=== PATIENT | male | born 1950 | race Caucasian/White ===

== ENCOUNTER 2020-03-20 13:34 | Emergency (ER) | payer MEDICARE, OTHER ==
[~2020-03-20] VITALS: Ht 172.7 cm; Wt 87.5 kg
[~2020-03-20 13:34] MED LIST: ACHD5005 PO; BENA20TA7 PO; HYOS0.1283 SL; METO50TA7 PO; OMG1KC PO; ONDA4TAB8 PO; PANT40TA2 PO
--- NOTE | 2020-03-20 13:59 | ED Dyspnea ---
General Stated Complaint: COVID + History of Present Illness Date Seen by Provider: Mar 20, 2020 Time Seen by Provider: 13:59 Initial Comments 69-year-old male presents with diarrhea 4 days. Preset a fever 4 days ago. He has a mild cough. No shortness of breath. Patient called his primary care provider who told him he probably needed to come to the ER for some IV fluids labs and testing for rotavirus. Patient denies any abdominal pain. Reports he's had significant amount of diarrheal stools. He has no known exposure to wei navirus and has been very careful with isolation. Allergies and Home Medications Allergies Coded Allergies: No Known Drug Allergies (Unverified , 07/19/11) Home Medications Benazepril HCl 20 Mg Tablet, 20 MG PO DAILY@1600, (Reported) Hydrocodone Bit/Acetaminophen 1 Each Tablet, 1-2 EACH PO Q6H PRN for PAIN Prescribed by: DERIC DOMÍNGUEZ on 05/17/15 1309 Hyoscyamine Sulfate 0.125 Mg Tab.subl, 1-2 TAB SL Q4H Prescribed by: NARCISO BEDOYA on 05/13/15 025 Metoprolol Succinate 50 Mg Tab.er.24h, 50 MG PO daily @1600, (Reported) [place] 3 Polyunsat Fatty Acids 1,000 Mg Cap, 1,000 MG PO DAILY@1600, (Reported) Ondansetron 4 Mg Tab.rapdis, 4 MG PO Q4H Prescribed by: NARCISO BEDOYA on 05/13/15 025 Patient Home Medication List Home Medication List Reviewed: Yes Review of Systems Review of Systems Constitutional: No chills, No dizziness; fever Respiratory: cough; No short of breath Cardiovascular: No chest pain, No palpitations Gastrointestinal: No abdominal pain; diarrhea; No nausea, No vomiting Genitourinary: no symptoms reported Musculoskeletal: no symptoms reported Skin: no symptoms reported Psychiatric/Neurological: No Symptoms Reported Past Gifhemd-Pbgfhy-Cnpusc Hx Past Med/Social Hx: Reviewed Nursing Past Med/Soc Hx Immunizations Up To Date Date of Pneumonia Vaccine: Aug 23, 2013 Seasonal Allergies Seasonal Allergies: No Past Medical History Appendectomy Hypertension Gall Bladder Disease Arthritis Skin Adverse Reaction/Blood Tranf: No Physical Exam Vital Signs Vital Signs - First Documented 03/20/20 14:22 Temp 37.5 Pulse 99 Resp 18 B/P (MAP) 149/87 (107) O2 Delivery Room Air Capillary Refill : Height, Weight, BMI Height: 5'9.00" Weight: 181lbs. 0.0oz. 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 Norm as Tested Skin: Normal Color, Warm/Dry Progress/Results/Core Measures Results/Orders Lab Results Laboratory Tests Test 03/20/20 14:36 03/20/20 14:37 Range/Units White Blood Count 4.7 4.3-11.0 10^3/uL Red Blood Count 5.18 4.35-5.85 10^6/uL Hemoglobin 16.3 13.3-17.7 G/DL Hematocrit 46 40-54 % Mean Corpuscular Volume 89 80-99 FL Mean Corpuscular Hemoglobin 32 25-34 PG Mean Corpuscular Hemoglobin Concent 35 32-36 G/DL Red Cell Distribution Width 14.0 10.0-14.5 % Platelet Count 133 130-400 10^3/uL Mean Platelet Volume 12.0 H 7.4-10.4 FL Neutrophils (%) (Auto) 43 42-75 % Lymphocytes (%) (Auto) 42 12-44 % Monocytes (%) (Auto) 15 H 0-12 % Eosinophils (%) (Auto) 0 0-10 % Basophils (%) (Auto) 0 0-10 % Neutrophils # (Auto) 2.0 1.8-7.8 X 10^3 Lymphocytes # (Auto) 1.9 1.0-4.0 X 10^3 Monocytes # (Auto) 0.7 0.0-1.0 X 10^3 Eosinophils # (Auto) 0.0 0.0-0.3 10^3/uL Basophils # (Auto) 0.0 0.0-0.1 10^3/uL Urine Color YELLOW Urine Clarity CLEAR Urine pH 6.0 5-9 Urine Specific [place] 1.025 H 1.016-1.022 Urine Protein 1+ H NEGATIVE Urine Glucose (UA) NEGATIVE NEGATIVE Urine Ketones NEGATIVE NEGATIVE Urine Nitrite NEGATIVE NEGATIVE Urine Bilirubin NEGATIVE NEGATIVE Urine Urobilinogen 0.2 < = 1.0 MG/DL Urine Leukocyte Esterase NEGATIVE NEGATIVE Urine RBC (Auto) NEGATIVE NEGATIVE Urine RBC NONE /HPF Urine WBC NONE /HPF Urine Crystals NONE /LPF Urine Bacteria NEGATIVE /HPF Urine Casts PRESENT /LPF Urine Hyaline Casts 0-2 H /LPF Urine Mucus NEGATIVE /LPF Urine Culture Indicated NO Sodium Level 137 135-145 MMOL/L Potassium Level 4.1 3.6-5.0 MMOL/L Chloride Level 107 98-107 MMOL/L Carbon Dioxide Level 20 L 21-32 MMOL/L Anion Gap 10 5-14 MMOL/L Blood Urea Nitrogen 20 H 7-18 MG/DL Creatinine 1.29 0.60-1.30 MG/DL Estimat Glomerular Filtration Rate 55 BUN/Creatinine Ratio 16 Glucose Level 110 H 70-105 MG/DL Calcium Level 8.4 L 8.5-10.1 MG/DL Corrected Calcium 8.4 L 8.5-10.1 MG/DL Total Bilirubin 0.5 0.1-1.0 MG/DL Aspartate Amino Transf (AST/SGOT) 203 H 5-34 U/L Alanine Aminotransferase (ALT/SGPT) 130 H 0-55 U/L Alkaline Phosphatase 54 40-136 U/L Total Protein 7.1 6.4-8.2 GM/DL Albumin 4.0 3.2-4.5 GM/DL Lipase 58 8-78 U/L My Orders Orders - SUZI HAHN DO Acute Abd Series (03/20/20 14:25) Ondansetron Injection (Zofran Injectio (03/20/20 14:30) Ns Iv 1000 Ml (Sodium Chloride 0.9%) (03/20/20 14:25) Famotidine Injection (Pepcid Injection) (03/20/20 14:25) Cbc With Automated Diff (03/20/20 14:25) Comprehensive Metabolic Panel (03/20/20 14:25) Lipase (03/20/20 14:25) Ua Culture If Indicated (03/20/20 14:25) Coronavirus Sars-Cov-2 So 2018 (03/20/20 14:25) Ed Iv/Invasive Line Start (03/20/20 14:48) Medications Given in ED Current Medications Medications Dose Ordered Sig/Wesley Route Start Time Stop Time Status Last Admin Dose Admin Ondansetron HCl 4 mg ONCE ONCE IVP 03/20/20 14:30 03/20/20 14:31 DC 03/20/20 14:47 4 MG Vital Signs/I&O 03/20/20 14:22 Temp 37.5 Pulse 99 Resp 18 B/P (MAP) 149/87 (107) O2 Delivery Room Air Progress Progress Note : Time: 15:50 Progress Note Patient with symptoms consistent with a viral illness. He does not show any signs of dehydration on physical exam or lab values. Patient is stable and will be discharged home. He should follow-up with his [facility] care provider as needed. Diagnostic Imaging Diagonstic Imaging: Xray Plain Films/CT/US/NM/MRI: chest, abdomen Comments [facility], [place] NAME: MADELIN BAE [facility] REC#: [id number] PT STATUS: REG ER : 1950 PHYSICIAN: SUZI HAHN DO ADMIT DATE: 03/20/20/ER Draft Date of Exam:03/20/20 ACUTE ABD SERIES EXAMINATION: Acute abdomen series. INDICATION: Abdominal pain. FINDINGS: The common erect PA chest shows heart size to be within normal limits and stable when compared to 05/13/2015. The lungs are generally clear. There is no evidence for pneumonia or for pleural effusion. There is a thin band of chronic atelectasis/scar formation now present in the left lung base, however. The mediastinum is not widened. Supine and erect views of the abdomen show gas in both large and small bowel. The bowel gas pattern is nonspecific. There is no evidence for bowel obstruction. There is no mass or organomegaly appreciated. There is fairly severe degenerative disc and bony disease at L4-L5 and L5-S1. There is no acute bony abnormality noted. IMPRESSION: 1. The bowel gas pattern is nonspecific. There is no acute abnormality evident. 2. A thin band of increased density has developed in the left lung base. The lungs are otherwise generally clear. Departure Impression Primary Impression: Gastroenteritis Additional Impression: Viral syndrome Disposition: 01 HOME, SELF-CARE Condition: Stable Departure-Patient Inst. Referrals: LATA PENA DO (PCP/Family) Primary Care Physician Patient Instructions: Coronavirus Disease 2019 (COVID-19) Overview, Viral Gastroenteritis, Viral Syndrome (DC) Add. Discharge Instructions: Please follow isolation guidelines until your COVID test results return Drink plenty of fluids Follow-up with your primary care provider as needed Scripts Ondansetron (Ondansetron Odt) 4 Mg Tab.rapdis 4 MG PO Q6H PRN for NAUSEA/VOMITING, #20 TAB 0 Refills Prov: SUZI HAHN DO 03/20/20 SUZI HAHN DO Mar 20, 2020 13:59
[2020-03-20] MEDS ORDERED: FAMOTIDINE 20MG/2ML IV (PEPCID) IV STA (14:25)
[2020-03-20] MEDS ORDERED: NS IV 1000 ML 1,000 ML IV STA (14:25)
[2020-03-20] MEDS ORDERED: ONDANSETRON 4 MG/2 ML (SDV) Z0FRAN IVP ONE (14:30)
[2020-03-20 14:53] LABS: BILIRUBIN,URINE NEGATIVE (NEGATIVE); CLARITY,URINE CLEAR; COLOR,URINE YELLOW; GLUCOSE, URINE (UA) NEGATIVE (NEGATIVE); KETONES,URINE NEGATIVE (NEGATIVE); LEUKOCYTE ESTERASE ,URINE NEGATIVE (NEGATIVE); NITRITE,URINE NEGATIVE (NEGATIVE); PROTEIN,URINE 1+ (NEGATIVE)
[2020-03-20 14:56] LABS: BASOPHILS % (AUTO) 0 % (0-10); EOSINOPHILS % (AUTO) 0 % (0-10); HEMATOCRIT 46 % (40-54); HEMOGLOBIN 16.3 G/DL (13.3-17.7); LYMPHOCYTES # (AUTO) 1.9 X 10^3 (1.0-4.0); LYMPHOCYTES % (AUTO) 42 % (12-44); MEAN CORPUSCULAR HEMOGLOBIN 32 PG (25-34); MEAN CORPUSCULAR HGB CONC 35 G/DL (32-36); MEAN CORPUSCULAR VOLUME 89 FL (80-99); MONOCYTES # (AUTO) 0.7 X 10^3 (0.0-1.0); MONOCYTES % (AUTO) 15 % (0-12); NEUTROPHILS % (AUTO) 43 % (42-75); PLATELET COUNT 133 10^3/uL (130-400); WHITE BLOOD COUNT 4.7 10^3/uL (4.3-11.0)
[2020-03-20 15:07] LABS: BACTERIA,URINE NEGATIVE /HPF; HYALINE CASTS, URINE 0-2 /LPF
--- NOTE | 2020-03-20 15:33 | Diagnostic Imaging Report ---
EXAMINATION: Acute abdomen series. INDICATION: Abdominal pain. FINDINGS: The common erect PA chest shows heart size to be within normal limits and stable when compared to 05/13/2015. The lungs are generally clear. There is no evidence for pneumonia or for pleural effusion. There is a thin band of chronic atelectasis/scar formation now present in the left lung base, however. The mediastinum is not widened. Supine and erect views of the abdomen show gas in both large and small bowel. The bowel gas pattern is nonspecific. There is no evidence for bowel obstruction. There is no mass or organomegaly appreciated. There is fairly severe degenerative disc and bony disease at L4-L5 and L5-S1. There is no acute bony abnormality noted. IMPRESSION: 1. The bowel gas pattern is nonspecific. There is no acute abnormality evident. 2. A thin band of increased density has developed in the left lung base. The lungs are otherwise generally clear. Dictated by: Dictated on workstation # [id number]
[2020-03-20 15:40] LABS: BILIRUBIN,TOTAL 0.5 MG/DL (0.1-1.0); CALCIUM 8.4 MG/DL (8.5-10.1); CREATININE SERUM 1.29 MG/DL (0.60-1.30); POTASSIUM 4.1 MMOL/L (3.6-5.0); TOTAL PROTEIN 7.1 GM/DL (6.4-8.2)
[2020-03-20] MEDS ORDERED: ONDA4TAB11 PO (15:52)
[2020-03-20 16:03] VITALS: BP 144/82
== END 2020-03-20 16:03 | disposition home or self-care (01) ==
LOC: EDUNIT# 13:34 → ER 13:44
DX: K52.9 Noninfective gastroenteritis and colitis, unspecified (principal); B34.9 Viral infection, unspecified; Z20.828 Contact with and (suspected) exposure to other viral communicable diseases
CPT/HCPCS: 74022; 80053; 81000; 83690; 85025; U0002; 36415; 87635

== ENCOUNTER 2020-03-24 11:02 | Emergency (ER) | payer MEDICARE, OTHER ==
[~2020-03-24] VITALS: Ht 175.2 cm; Wt 88.4 kg
[~2020-03-24 11:02] MED LIST changes: +ONDA4TAB11 PO
--- NOTE | 2020-03-24 11:24 | ED General ---
General Stated Complaint: DIARRHEA Source of Information: Patient Exam Limitations: No Limitations History of Present Illness Date Seen by Provider: Mar 24, 2020 Time Seen by Provider: 11:23 Initial Comments ToEr with c/o weakness and ongoing dark diarrhea. No abdominal pain. No grossly bloody diarrhea. No fevers. Has tested negative for covid. no chills. just general weakness. Timing/Duration: 1 Week Severity: Moderate Associated Systoms: Nausea/Vomiting Allergies and Home Medications Allergies Coded Allergies: No Known Drug Allergies (Unverified , 07/19/11) Home Medications Benazepril HCl 20 Mg Tablet, 20 MG PO DAILY@1600, (Reported) Hydrocodone Bit/Acetaminophen 1 Each Tablet, 1-2 EACH PO Q6H PRN for PAIN Prescribed by: DERIC DOMÍNGUEZ on 05/17/15 1309 Hyoscyamine Sulfate 0.125 Mg Tab.subl, 1-2 TAB SL Q4H Prescribed by: NARCISO BEDOYA on 05/13/15 0259 Metoprolol Succinate 50 Mg Tab.er.24h, 50 MG PO daily @1600, (Reported) [place] 3 Polyunsat Fatty Acids 1,000 Mg Cap, 1,000 MG PO DAILY@1600, (Reported) Ondansetron 4 Mg Tab.rapdis, 4 MG PO Q4H Prescribed by: NARCISO BEDOYA on 05/13/15 025 Ondansetron 4 Mg Tab.rapdis, 4 MG PO Q6H PRN for NAUSEA/VOMITING Prescribed by: SUZI HAHN on 03/20/20 1552 Patient Home Medication List Home Medication List Reviewed: Yes Review of Systems Review of Systems Constitutional: see HPI EENTM: see HPI Respiratory: no symptoms reported Cardiovascular: no symptoms reported Genitourinary: no symptoms reported Musculoskeletal: no symptoms reported Skin: no symptoms reported Psychiatric/Neurological: No Symptoms Reported Hematologic/Lymphatic: No Symptoms Reported Immunological/Allergic: no symptoms reported Past Gzozthf-Wuhcft-Utiowh Hx Patient Social History 2nd Hand Smoke Exposure: No Recent Foreign Travel: No Contact w/Someone Who Travel: No Immunizations Up To Date Date of Pneumonia Vaccine: Aug 23, 2013 Seasonal Allergies Seasonal Allergies: No Past Medical History Surgeries: Yes (SKIN CANCER REMOVED FROM RIGHT EAR) Appendectomy Respiratory: No Cardiac: Yes Hypertension Neurological: No Gastrointestinal: Yes Gall Bladder Disease Musculoskeletal: Yes Arthritis Endocrine: No (HAD "PRE-DIABETES" IN THE PAST--NO MEDICATIONS AND NO PROBLEMS NOW) Cancer: Yes Skin Psychosocial: No Integumentary: No Blood Disorders: No Adverse Reaction/Blood Tranf: No Physical Exam Vital Signs Vital Signs - First Documented 03/24/20 11:12 Temp 37.1 Pulse 97 Resp 20 B/P (MAP) 128/114 (119) Pulse Ox 97 O2 Delivery Room Air Capillary Refill : Height, Weight, BMI Height: 5'9.00" Weight: 181lbs. 0.0oz. 82.612877yn; 29.00 BMI Method:Stated General Appearance: No Apparent Distress, WD/WN Eyes: Bilateral Eye Normal Inspection, Bilateral Eye PERRL, Bilateral Eye EOMI Respiratory: No Accessory Muscle Use, No Respiratory Distress Cardiovascular: Regular Rate, Rhythm, Normal Peripheral Pulses Gastrointestinal: Non Tender, Soft Extremity: Normal Capillary Refill, Normal Inspection Neurologic/Psychiatric: Alert, Oriented x3 Skin: Normal Color, Warm/Dry Progress/Results/Core Measures Suspected Sepsis SIRS Temperature: Pulse: Respiratory Rate: Laboratory Tests 03/24/20 11:20: White Blood Count 3.7L Blood Pressure / Mean: Laboratory Tests 03/24/20 11:20: Creatinine 1.14, Platelet Count 85L, Total Bilirubin 0.5 Results/Orders Lab Results Laboratory Tests Test 03/24/20 11:20 Range/Units White Blood Count 3.7 L 4.3-11.0 10^3/uL Red Blood Count 5.30 4.35-5.85 10^6/uL Hemoglobin 16.8 13.3-17.7 G/DL Hematocrit 46 40-54 % Mean Corpuscular Volume 87 80-99 FL Mean Corpuscular Hemoglobin 32 25-34 PG Mean Corpuscular Hemoglobin Concent 36 32-36 G/DL Red Cell Distribution Width 13.8 10.0-14.5 % Platelet Count 85 L 130-400 10^3/uL Mean Platelet Volume 12.2 H 7.4-10.4 FL Neutrophils (%) (Auto) 37 L 42-75 % Lymphocytes (%) (Auto) 48 H 12-44 % Monocytes (%) (Auto) 14 H 0-12 % Eosinophils (%) (Auto) 0 0-10 % Basophils (%) (Auto) 1 0-10 % Neutrophils # (Auto) 1.4 L 1.8-7.8 X 10^3 Lymphocytes # (Auto) 1.8 1.0-4.0 X 10^3 Monocytes # (Auto) 0.5 0.0-1.0 X 10^3 Eosinophils # (Auto) 0.0 0.0-0.3 10^3/uL Basophils # (Auto) 0.0 0.0-0.1 10^3/uL Sodium Level 134 L 135-145 MMOL/L Potassium Level 3.9 3.6-5.0 MMOL/L Chloride Level 104 98-107 MMOL/L Carbon Dioxide Level 17 L 21-32 MMOL/L Anion Gap 13 5-14 MMOL/L Blood Urea Nitrogen 17 7-18 MG/DL Creatinine 1.14 0.60-1.30 MG/DL Estimat Glomerular Filtration Rate > 60 BUN/Creatinine Ratio 15 Glucose Level 113 H 70-105 MG/DL Calcium Level 8.3 L 8.5-10.1 MG/DL Corrected Calcium 8.3 L 8.5-10.1 MG/DL Total Bilirubin 0.5 0.1-1.0 MG/DL Aspartate Amino Transf (AST/SGOT) 198 H 5-34 U/L Alanine Aminotransferase (ALT/SGPT) 107 H 0-55 U/L Alkaline Phosphatase 51 40-136 U/L Total Protein 7.1 6.4-8.2 GM/DL Albumin 4.0 3.2-4.5 GM/DL My Orders Orders - ARTI SANTANA APRN Comprehensive Metabolic Panel (03/24/20 11:19) Ed Iv/Invasive Line Start (03/24/20 11:19) Cbc With Automated Diff (03/24/20 11:19) Ed Iv/Invasive Line Start (03/24/20 11:19) Lactated Ringers (Lr 1000 Ml Iv Solution (03/24/20 11:30) Loperamide Tablet (Imodium Tablet) (03/24/20 11:30) Ct Abdomen/Pelvis W (03/24/20 11:58) Iohexol Injection (Omnipaque 350 Mg/Ml 1 (03/24/20 12:15) Received Contrast (Hold Metformin- Contr (03/24/20 12:15) Sodium Chloride Flush (Catheter Flush Sy (03/24/20 12:15) Ns (Ivpb) (Sodium Chloride 0.9% Ivpb Bag (03/24/20 12:15) Medications Given in ED Current Medications Medications Dose Ordered Sig/Wesley Route Start Time Stop Time Status Last Admin Dose Admin Iohexol 100 ml ONCE ONCE IV 03/24/20 12:15 03/24/20 12:16 DC 03/24/20 12:34 100 ML Loperamide HCl 4 mg ONCE ONCE PO 03/24/20 11:30 03/24/20 11:31 DC 03/24/20 11:31 4 MG Sodium Chloride 10 ml NEEDED PRN IV 03/24/20 12:15 03/24/20 12:35 10 ML Sodium Chloride 100 ml ONCE ONCE IV 03/24/20 12:15 03/24/20 12:16 DC 03/24/20 12:35 80 ML Vital Signs/I&O 03/24/20 11:12 Temp 37.1 Pulse 97 Resp 20 B/P (MAP) 128/114 (119) Pulse Ox 97 O2 Delivery Room Air Capillary Refill : Departure Impression Primary Impression: Diarrhea Qualified Codes: R19.7 - Diarrhea, unspecified Disposition: HOME, SELF-CARE Condition: Stable Departure-Patient Inst. Decision time for Depature: 13:10 Referrals: LATA PENA DO (PCP/Family) Primary Care Physician Patient Instructions: Diarrhea and Travelers' Diarrhea, Adult (DC) Add. Discharge Instructions: 1. Drink plenty of liquids 2. Take the antidiarrheal medication as directed. Return to ER for any concerns. Call Dr. Dr. Pena tomorrow to make an appointment to be seen. Scripts Loperamide HCl (Imodium A-D) 2 Mg Tablet 2 MG PO TID, #6 TAB Prov: ARTI SANTANA APRN 03/24/20 Copy Copies To 1: LATA PENA PETER J APRN Mar 24, 2020 11:24
[2020-03-24] MEDS ORDERED: LACTATED RINGERS 1,000 ML IV SCH (11:30)
[2020-03-24] MEDS ORDERED: LOPERAMIDE 2 MG (IMODIUM) TABLET PO ONE (11:30)
[2020-03-24 11:34] LABS: BASOPHILS % (AUTO) 1 % (0-10); EOSINOPHILS % (AUTO) 0 % (0-10); HEMATOCRIT 46 % (40-54); HEMOGLOBIN 16.8 G/DL (13.3-17.7); LYMPHOCYTES # (AUTO) 1.8 X 10^3 (1.0-4.0); LYMPHOCYTES % (AUTO) 48 % (12-44); MEAN CORPUSCULAR HEMOGLOBIN 32 PG (25-34); MEAN CORPUSCULAR HGB CONC 36 G/DL (32-36); MEAN CORPUSCULAR VOLUME 87 FL (80-99); MEAN PLATELET VOLUME 12.2 FL (7.4-10.4); MONOCYTES # (AUTO) 0.5 X 10^3 (0.0-1.0); MONOCYTES % (AUTO) 14 % (0-12); NEUTROPHILS # (AUTO) 1.4 X 10^3 (1.8-7.8); NEUTROPHILS % (AUTO) 37 % (42-75); RED CELL DISTRIBUTION WIDTH 13.8 % (10.0-14.5); WHITE BLOOD COUNT 3.7 10^3/uL (4.3-11.0)
[2020-03-24 11:35] LABS: PLATELET COUNT 85 10^3/uL (130-400)
--- NOTE | 2020-03-24 11:38 | NUR ---
Spoke to pt's brother via phone regarding plan of care.
[2020-03-24 11:42] LABS: CHLORIDE 104 MMOL/L (98-107); POTASSIUM 3.9 MMOL/L (3.6-5.0); SODIUM 134 MMOL/L (135-145)
[2020-03-24 11:44] LABS: CALCIUM 8.3 MG/DL (8.5-10.1)
[2020-03-24 11:45] LABS: GLUCOSE 113 MG/DL (70-105); TOTAL PROTEIN 7.1 GM/DL (6.4-8.2)
[2020-03-24 11:46] LABS: CARBON DIOXIDE 17 MMOL/L (21-32)
[2020-03-24 11:47] LABS: BILIRUBIN,TOTAL 0.5 MG/DL (0.1-1.0)
[2020-03-24 11:48] LABS: ALKALINE PHOSPHATASE 51 U/L (40-136); CREATININE SERUM 1.14 MG/DL (0.60-1.30); GFR ESTIMATED > 60
[2020-03-24 11:50] LABS: BUN/CREATININE RATIO 15
[2020-03-24 11:51] LABS: ALANINE AMINOTRANSFERASE 107 U/L (0-55)
[2020-03-24] MEDS ORDERED: HOLD METFORMIN - RECEIVED CONTRAST 20 ML VIAL IV SCH (12:15)
[2020-03-24] MEDS ORDERED: NS 100 ML (IVPB) BAG IV ONE (12:15)
[2020-03-24] MEDS ORDERED: IOHEXOL 350 MG/ML 100 ML (OMNIPAQUE 350) VIAL IV ONE (12:15)
[2020-03-24] MEDS ORDERED: CATHETER FLUSH 10 ML SYR IV PRN (12:15)
--- NOTE | 2020-03-24 12:58 | Diagnostic Imaging Report ---
PROCEDURE: CT abdomen and pelvis with contrast. TECHNIQUE: Multiple contiguous axial images were obtained through the abdomen and pelvis after administration of intravenous contrast. Auto Exposure Controls were utilized during the CT exam to meet ALARA standards for radiation dose reduction. INDICATION: Abdominal pain, diarrhea and weakness. Surgical history includes cholecystectomy and appendectomy. Comparison made with prior examination from 05/13/2015. FINDINGS: The heart size is normal. The lung bases are clear. There is fatty infiltration of the liver. There is no biliary duct dilatation. The gallbladder is surgically absent. Spleen is normal. Note is again made of a focal cystic area in the uncinate process of the pancreas. This is essentially unchanged when compared to prior examination from 2014. The adrenal glands are unremarkable. Kidneys normal in appearance. There are some atherosclerotic calcification from the aorta. Bowel gas pattern is nonspecific. There is no free air. There is no ascites. There is no focal inflammatory process. Bladder is normal. There is no pelvic mass, adenopathy or free fluid. There are degenerative changes in the spine. IMPRESSION: Fatty infiltration of the liver. Unchanged cystic mass in the uncinate process of the pancreas presumably a benign process. No other acute abnormality in the abdomen or pelvis. Dictated by: Dictated on workstation # [id number]
[2020-03-24] MEDS ORDERED: LOPE-134 PO (13:12)
--- NOTE | 2020-03-24 13:20 | NUR ---
attempted to call pt's brother re:discharge plan; no answer.
[2020-03-24 13:29] VITALS: BP 156/79
[2020-03-27] MEDS ORDERED: CEFD300C3 PO (13:23)
[2020-03-27] MEDS ORDERED: BENA10TA66 PO (13:23)
[2020-03-27] MEDS ORDERED: MTP25TSR PO (13:23)
[2020-03-27] MEDS ORDERED: ONDA4TAB11 PO (13:23)
[2020-03-27] MEDS ORDERED: LOPE2CAP PO (13:25)
[2020-03-27] MEDS ORDERED: IBUP-2185 PO (13:25)
== END 2020-03-24 13:35 | disposition home or self-care (01) ==
LOC: EDUNIT# 11:02 → ER 11:03
DX: R19.7 Diarrhea, unspecified (principal); I10 Essential (primary) hypertension; M19.90 Unspecified osteoarthritis, unspecified site; Z85.828 Personal history of other malignant neoplasm of skin; Z79.899 Other long term (current) drug therapy
CPT/HCPCS: 36415; 74177; 80053; 85025

== ENCOUNTER → 2022-02-11 | Outpatient (CLI) | payer MEDICARE, OTHER ==
[~2022-02-11] VITALS: Ht 174 cm; Wt 78.7 kg
[~2022-02-11] MED LIST changes: +ACET-2267 PO; +AMOX-358 PO; +ASPI-999 PO; +ATOR10TA66 PO; +BENA-3 PO; +BENA10TA66 PO; -BENA20TA7 PO; +CALC300T4 PO; +CEFD300C3 PO; +CLOP75TA28 PO; +DOXY100T2 PO; +FENO54TA PO; +IBUP-2185 PO; +LOPE-134 PO; +LOPE2CAP PO; +MTP100TCR PO; +MTP25TSR PO; +TURM1TAB2 PO; +TURM500C4 PO
== END | disposition home or self-care (01) ==
LOC: PREOP 05:36
PROVIDERS: ATTEND Surgery
DX: Z01.818 Encounter for other preprocedural examination (principal)

== ENCOUNTER 2022-02-24 10:01 | Day surgery (SDC) | payer MEDICARE, OTHER ==
[~2022-02-24] VITALS: Ht 174 cm; Wt 78.7 kg
[2022-02-24] MEDS ORDERED: LACTATED RINGERS 1,000 ML IV STA (10:03)
--- NOTE | 2022-02-24 10:16 | Progress Note-Pre Operative ---
Pre-Operative Progress Note H&P Reviewed The H&P was reviewed, patient examined and no changes noted. Date Seen by Provider: Feb 24, 2022 Time Seen by Provider: 10:16 Date H&P Reviewed: Feb 24, 2022 Time H&P Reviewed: 10:16 Pre-Operative Diagnosis: chronic diarrhea, change in bowel habits MAGDALENO ROQUE DO Feb 24, 2022 10:16
[2022-02-24 10:34] VITALS: BP 146/81
[2022-02-24] MEDS ORDERED: PROPOFOL INJECTION 50 ML IV ONE (11:17)
--- NOTE | 2022-02-24 11:56 | Progress Note-Post Operative ---
Post-Operative Progess Note Surgeon (s)/Heavy Equipment Technician (s) Surgeon MAGDALENO ROQUE DO Heavy Equipment Technician: na Pre-Operative Diagnosis chronic diarrhea, change in bowel habits Post-Operative Diagnosis colon polyps x 6 Procedure & Operative Findings Date of Procedure 02/24/22 Procedure Performed/Findings colonoscopy c random cold biopsies, hot bx polypectomy x 6 Anesthesia Type per mda Estimated Blood Loss Estimated blood loss (mL): none Specimens/Packing Specimens Removed random colon, colon polyps MAGDALENO ROQUE DO Feb 24, 2022 11:56
--- NOTE | 2022-02-24 11:57 | Discharge Inst-Simple/Standard ---
Discharge Inst-Standard Patient Instructions/Follow Up Plan of Care/Instructions/FU: 2 weeks Kylie Activity as Tolerated: Yes Discharge Diet: Regular Diet (high fiber) MAGDALENO ROQUE DO Feb 24, 2022 11:57
[2022-02-24 12:00] VITALS: BP 109/64
--- NOTE | 2022-02-24 12:04 | Anesthesia-General Post-Op ---
MAC Patient Condition Mental Status/LOC: Same as Preop Cardiovascular: Satisfactory Nausea/Vomiting: Absent Respiratory: Satisfactory Pain: Controlled Complications: Absent Post Op Complications Complications None Follow Up Care/Instructions Patient Instructions None needed. Anesthesiology Discharge Order Discharge Order Patient is doing well, no complaints, stable vital signs, no apparent adverse anesthesia problems. No complications reported per nursing. VALENCIA BUTLER DO Feb 24, 2022 12:04
[2022-02-24 12:05] VITALS: BP 122/67
[2022-02-24 12:10] VITALS: BP 111/62
[2022-02-24 12:35] VITALS: BP 132/77
[2022-02-24 13:20] VITALS: BP 132/77
--- NOTE | 2022-02-24 17:29 | OPERATIVE REPORT ---
DATE OF SERVICE: 02/24/2022 PREOPERATIVE DIAGNOSIS: Chronic diarrhea, change in bowel habits. POSTOPERATIVE DIAGNOSIS: Colon polyps. PROCEDURES PERFORMED: Colonoscopy with random cold biopsies and hot biopsy polypectomy x6. SURGEON: Magdaleno Espinal DO. ANESTHESIA: Per MDA. ESTIMATED BLOOD LOSS: None. COMPLICATIONS: None. INDICATIONS FOR PROCEDURE: The patient is a 71-year-old male with chronic diarrhea and change in bowel habits. He understands risks and benefits of procedure and wishes to proceed. Consent was signed in the chart. DESCRIPTION OF PROCEDURE: The patient was taken to the endoscopy suite and placed in a left lateral recumbent position. Timeout was performed. Digital rectal exam was performed. No palpable polyps, masses or ulcerations. Scope was inserted in the rectum and advanced all the way to the ileocolonic anastomosis. There were no polyps, masses or ulcerations here. Ascending colon polyp had no polyps, masses or ulcerations. Transverse colon had no polyps, masses or ulcerations. Descending colon, no polyps, masses or ulcerations. In sigmoid colon, there were four polyps, which hot biopsy polypectomies were performed. Scope was then continuously and slowly retracted back into the rectum where another two polyps were present, which hot biopsy polypectomy was performed. As the scope was being withdrawn, random cold biopsies were obtained as well. Once in the rectum, scope was retroflexed noting no other pathology. Scope was returned to its normal position, slowly withdrawn until completely removed. The patient tolerated the procedure well without any complications and he was taken to the recovery room in stable condition. RECOMMENDATIONS: The patient will need repeat colonoscopy in five years depending on risks and benefits and also depending on pathology. Await biopsy results for further recommendations. Job ID: [id number] DocumentID: [id number] Dictated Date: 02/24/2022 12:00:18 Pesticide Use Medical Coordinator Date: 02/24/2022 17:28:06 Dictated By: MAGDALENO ESPINAL DO
== END 2022-02-24 13:20 | disposition home or self-care (01) ==
LOC: ENDO 10:01
PROVIDERS: ATTEND Surgery
DX: K63.5 Polyp of colon (principal); K62.1 Rectal polyp; K52.9 Noninfective gastroenteritis and colitis, unspecified; Z87.891 Personal history of nicotine dependence; Z79.82 Long term (current) use of aspirin

== ENCOUNTER → 2023-04-05 | Outpatient (CLI) | payer MEDICARE, OTHER | LOC: CARD 08:25 | PROVIDERS: ATTEND Nurse Practitioner Family | DX: I51.7 Cardiomegaly (principal) | CPT/HCPCS: 93306 ==